=== PATIENT | male | born 1985 | race American Indian/Alaskan Native ===

== ENCOUNTER 2017-02-21 18:33 | Emergency (ER) | payer MEDICAID ==
--- NOTE | 2017-02-21 21:54 | Emergency Department Report ---
HPI - General Chief Complaint: Earache Time Seen by Provider: 02/21/17 21:51 - HPI HPI: Patient here requesting a ring removal off his right ring finger. This was removed in triage area. Patient also reports left r ear pain 1 month. Denies any trauma or drainage from ears. Has any nasal congestion. Denies any fever or chills ,shortness of breath or chest pain. Patient is HIV positive and he said he goes to [facility] and will be seeing them in 2 months. He said they manage his HIV. Pain to left ear is 5 out of 10 and it comes and goes and he said he took Tylenol for pain. No pain medicine taken today. Patient has no other complaints. He has a history also of schizophrenia and asthma. ED Past Medical Hx - Past Medical History Previous Medical History?: Yes Hx Psychiatric Treatment: Yes (schizophrenic) Hx Asthma: Yes Hx HIV: Yes - Surgical History Past Surgical History?: No - Family History Family history: no significant - Social History Smoking Status: Current Every Day Smoker Substance Use Type: None - Medications Home Medications: Home Medications Medication Instructions Recorded Confirmed Last Taken Type Neomy/Polymyx B/Hc Otic Susp 4 drops OTIC TID #1 bottle 02/21/17 Unknown Rx [Cortisporin (Otic) Susp] ED Review of Systems ROS: Stated complaint: UNABLE TO REMOVE RING FROM RT HAND Other details as noted in HPI Comment: All other systems reviewed and negative Constitutional: denies: chills, fever, weakness Eyes: denies: eye pain, eye discharge ENT: ear pain (left ear). denies: throat pain, dental pain, congestion Respiratory: no symptoms reported Cardiovascular: denies: chest pain, palpitations, edema, syncope Gastrointestinal: denies: abdominal pain, nausea, vomiting Musculoskeletal: arthralgia (right ring finger pain ,requesting removal of ring) Skin: denies: rash Neurological: denies: headache, weakness, abnormal gait, vertigo Physical Exam - Physical Exam Vital Signs: Vital Signs 02/21/17 18:48 Temperature 98.6 F Pulse Rate 90 Respiratory 16 Rate Blood Pressure 115/76 O2 Sat by Pulse 99 Oximetry General: This is a 31-year-old male well-nourished well-developed in no acute distress. Physical Exam: Head: Normocephalic atraumatic Mouth: Moist, no pharyngeal exudate or erythema. Uvula is midline and oral airway is patent. No gingival enlargement or dental tenderness. No facial swelling. No peritonsillar abscesses. Neck: Supple, no C-spine tenderness, no tracheal deviation. Nontender to palpate. no adenopathy Ears: Bilateral TMs pearly martínez . Left EAC with redness, swelling. No drainage noted . Left tragus tender to palpate Eyes: Bilateral pupils equal and reactive to light, bilateral EOM intact. Bilateral sclera and conjunctiva without injection. Normal accommodation Nose: Mucosa moist, normal mucosa .maxillary and frontal sinus non-tender to palpate. Lungs: Clear to auscultate bilaterally no rhonchi wheezes or rales. Normal work of breathing extremity; No CCE. +2 pulses. No neurovascular compromise. Right fourth finger where ring was removed without abnormality except noted indentation where ring was. Capillary refill less than 3 seconds. Good color, sensation, movement in temperature to extremities. Full range of motion to all extremities including right ring finger. Cardiovascular: S1-S2, regular rate rhythm. No murmurs. Skin: clean Dry and intact no rash no lesions Psych: Normal mood and behavior ED Course Vital Signs 02/21/17 18:48 Temperature 98.6 F Pulse Rate 90 Respiratory 16 Rate Blood Pressure 115/76 O2 Sat by Pulse 99 Oximetry - Reevaluation(s) Reevaluation #1: 02/21/17 23:09 Patient had ring removed in triage area. - Procedure Description Procedures done: Procedure for removal of ring: Ring cutter used to remove rings from right fourth finger. Patient tolerated procedure well. No deformity noted. ED Medical Decision Making - Medical Decision Making ED course: Patient here complaining of left ear pain and requesting ring removed from right ring finger. See procedure note for details on removal. Patient with otitis externa left ear and arthralgia. Patient is stable to follow-up with his primary care physician in 3-5 days. He voices understanding of discharge diagnosis and treatment plan and discharged home in stable condition. Critical care attestation.: If time is entered above; I have spent that time in minutes in the direct care of this critically ill patient, excluding procedure time. ED Disposition Clinical Impression: Otalgia, left ear, Encounter for smoking cessation counseling Superficial foreign body of right ring finger Qualifiers: Encounter type: initial encounter Qualified Code(s): S60.454A - Superficial foreign body of right ring finger, initial encounter Otitis externa of left ear Qualifiers: Otitis externa type: noninfectious Noninfectious otitis externa type: other type Chronicity: unspecified Qualified Code(s): H60.8X2 - Other otitis externa, left ear Disposition: DISCHARGED TO HOME OR SELFCARE Is pt being admited?: No Does the pt Need Aspirin: No Condition: Stable Instructions: Earache (ED), Otitis Externa (ED), How to Stop Smoking (ED) Additional Instructions: Please follow-up with your primary care physician at [facility] in 3-5 days. Take antibiotic eardrops as instructed. Avoid getting water in your ears. Prescriptions: Neomy/Polymyx B/Hc Otic Susp [Cortisporin (Otic) Susp] 4 drops OTIC TID #1 bottle Referrals: PRIMARY CARE, [Primary Care Provider] - 3-5 Days Forms: Work/School Release Form(ED)
[2017-02-21 23:34] VITALS: BP 120/78
== END 2017-02-21 23:35 | disposition home or self-care (01) ==
LOC: ED 18:33
DX: S60.454A Superficial foreign body of right ring finger, initial encounter (principal); H60.8X2 Other otitis externa, left ear; J45.909 Unspecified asthma, uncomplicated; F20.9 Schizophrenia, unspecified; X58.XXXA Exposure to other specified factors, initial encounter; Y93.9 Activity, unspecified; Y92.9 Unspecified place or not applicable; Y99.9 Unspecified external cause status
CPT/HCPCS: 99282

== ENCOUNTER 2018-10-25 09:17 | Emergency (ER) | payer MEDICAID ==
[2018-10-25 09:28] VITALS: BP 152/72
--- NOTE | 2018-10-25 09:50 | Emergency Department Report ---
Upper Extremity - [facility] Chief Complaint: Extremity Injury, Upper Stated Complaint: LT ARM INJURY Time Seen by Provider: 10/25/18 09:42 Upper Extremity: Left Hand (pain intermittent x 1 day) Occurred When: 1 Day Mechanism: Unsure Severity: mild Symptoms: No Pain with Movement, No Deformity, No Limited Range of Movement, No Numbness, No Weakness, No Swelling, No Bruising/Ecchymosis, No Laceration or Abrasion Other History: 32-year-old male presents to ED complaining of left hand pain since Wednesday. Patient states that the pain itself is not at the moment but he has some pain he denies trauma, injury to the hand. ED Review of Systems ROS: Stated complaint: LT ARM INJURY Other details as noted in HPI ED Past Medical Hx - Past Medical History Previous Medical History?: Yes Hx Psychiatric Treatment: Yes (schizophrenic) Hx Asthma: Yes Hx HIV: Yes Additional medical history: herpes - Surgical History Past Surgical History?: No Additional Surgical History: unable to assess - Social History Smoking Status: Current Every Day Smoker Substance Use Type: Alcohol - Medications Home Medications: Home Medications Medication Instructions Recorded Confirmed Last Taken Type Neomy/Polymyx B/Hc Otic Susp 4 drops OTIC TID #1 bottle 02/21/17 Unknown Rx [Cortisporin (Otic) Susp] Naproxen [Naprosyn] 500 mg PO BID #30 tablet 10/25/18 Unknown Rx Upper Extremity Exam - Exam General: Vital signs noted. No distress. Alert and acting appropriately. Head and Torso: No HEENT Abnormality, No Neck Tenderness, No Chest/Lungs Abnormality, No Abdominal Tenderness, No Back Tenderness Shoulder Exam: Yes Normal Range of Motion in Shoulder, No Shoulder Tenderness, No Clavicle Tenderness, No Shoulder Deformity, No AC Joint Tenderness Arm Exam: No Arm/Humerus Tenderness, No Arm Deformity Elbow: No Elbow Tenderness, No Normal Range of Motion in Elbow, No Elbow Deformity Forearm: No Forearm Tenderness, No Forearm Deformity, No Pain with Pronation, No Pain with Supination Wrist: Yes Normal ROM in Wrist, No Wrist Tenderness, No Wrist Deformity, No Snuffbox Tenderness, No Pain with Axial Thumb Compression Hand: Yes Normal ROM in Digit(s), No Hand Tenderness, No Hand Deformity, No Digit Tenderness, No Digit(s) Deformity, No Tendon Dysfunction CMS Exam: No Broken Skin, No Normal Distal Pulses, No Normal Capillary Refill, No Normal Distal Sensation ED Course Vital Signs 10/25/18 09:22 Temperature 98.7 F Pulse Rate 112 H Respiratory 14 Rate Blood Pressure 152/72 O2 Sat by Pulse 99 Oximetry ED Medical Decision Making - Radiology Data Radiology results: report reviewed, image reviewed XRay Report Signed Fluoro Time In Minutes: LEFT HAND, 2 views: History: Left hand pain. The bony architecture is intact. Bony alignment is normal. No soft tissue abnormalities are seen. The joint spaces appear preserved. IMPRESSION: Normal left hand. Transcribed By: TTR Dictated By: NICKIE ISABEL JR, MD Electronically Authenticated By: NICKIE ISABEL JR, MD Signed Date/Time: 10/25/18 1145 - Medical Decision Making 32-year-old male presents with hand pain. Plan evaluation and no deformity, erythema or swelling. Discussed the patient follow up with her physician X-ray findings shows no acute process. Vital signs are normal patient is in no acute or respiratory distress Critical care attestation.: If time is entered above; I have spent that time in minutes in the direct care of this critically ill patient, excluding procedure time. ED Disposition Clinical Impression: Hand pain, left, Arthralgia Disposition: DC-01 TO HOME OR SELFCARE Is pt being admited?: No Does the pt Need Aspirin: No Condition: Stable Instructions: Wrist Injury (ED), Arthralgia (ED) Additional Instructions: Make sure to follow up with the primary care physician as discussed. Take all your medications as you've been prescribed. If you have any worsening symptoms or develop new symptoms please return to ED immediately. Prescriptions: Naproxen [Naprosyn] 500 mg PO BID #30 tablet Referrals: [facility] [Outside] - 3-5 Days [facility] [Outside] - 3-5 Days Forms: Work/School Release Form(ED) Time of Disposition: 10:09
--- NOTE | 2018-10-25 11:49 | XRay Report ---
LEFT HAND, 2 views: History: Left hand pain. The bony architecture is intact. Bony alignment is normal. No soft tissue abnormalities are seen. The joint spaces appear preserved. IMPRESSION: Normal left hand.
== END 2018-10-25 10:53 | disposition home or self-care (01) ==
LOC: ED 09:17
DX: M79.642 Pain in left hand (principal); J45.909 Unspecified asthma, uncomplicated; F20.9 Schizophrenia, unspecified; F17.200 Nicotine dependence, unspecified, uncomplicated
CPT/HCPCS: 99283

== ENCOUNTER 2018-12-30 10:25 | Emergency (ER) | payer MEDICAID ==
--- NOTE | 2018-12-30 11:12 | Emergency Department Report ---
ED Psych HPI - General Chief Complaint: Medical Clearance Stated Complaint: DRUG ABUSE Time Seen by Provider: 12/30/18 11:02 Source: EMS Mode of arrival: Stretcher - History of Present Illness Initial Comments: 33-year-old male presents to ED via EMS for psychosis. Patient reportedly has history of bipolar and schizophrenia. Patient's mother called EMS this morning because patient was "tearing up the house." Mother states patient has been using methamphetamine. Patient was agitated, combative and not following directions, so EMS administered 5 mg Versed, 5 mg Haldol, 50 mg Benadryl. Patient currently sedated. MD Complaint: altered mental status -: This morning Context: recent drug abuse Treatments Prior to Arrival: chemical restraints - Related Data Previous Rx's Medication Instructions Recorded Last Taken Type Neomy/Polymyx B/Hc Otic Susp 4 drops OTIC TID #1 bottle 02/21/17 Unknown Rx [Cortisporin (Otic) Susp] Naproxen [Naprosyn] 500 mg PO BID #30 tablet 10/25/18 Unknown Rx Allergies Allergy/AdvReac Type Severity Reaction Status Date / Time No Known Allergies Allergy Unverified 04/02/15 18:52 ED Review of Systems ROS: Stated complaint: DRUG ABUSE Other details as noted in HPI Comment: Unobtainable due to pts medical conditions (pt sedated) ED Past Medical Hx - Past Medical History Hx Psychiatric Treatment: Yes (schizophrenic) Hx Asthma: Yes Hx HIV: Yes Additional medical history: herpes - Surgical History Additional Surgical History: unable to assess - Social History Smoking Status: Current Every Day Smoker Substance Use Type: Alcohol - Medications Home Medications: Home Medications Medication Instructions Recorded Confirmed Last Taken Type Neomy/Polymyx B/Hc Otic Susp 4 drops OTIC TID #1 bottle 02/21/17 Unknown Rx [Cortisporin (Otic) Susp] Naproxen [Naprosyn] 500 mg PO BID #30 tablet 10/25/18 Unknown Rx ED Physical Exam - General Limitations: Altered Mental Status General appearance: in no apparent distress - Head Head exam: Present: atraumatic, normocephalic - Eye Eye exam: Present: normal appearance - ENT ENT exam: Present: mucous membranes moist - Neck Neck exam: Present: normal inspection - Respiratory Respiratory exam: Present: normal lung sounds bilaterally. Absent: respiratory distress - Cardiovascular Cardiovascular Exam: Present: normal rhythm, tachycardia - GI/Abdominal GI/Abdominal exam: Present: soft. Absent: distended - Extremities Exam Extremities exam: Present: normal inspection - Neurological Exam Neurological exam: Present: other (pt sedated, withdraws to painful stimuli) - Skin Skin exam: Present: warm, dry, intact, normal color ED Course Vital Signs 12/30/18 12/30/18 12/30/18 10:55 10:59 11:05 Temperature 98.0 F Pulse Rate 109 H 105 H Respiratory 22 18 Rate Blood Pressure 117/63 101/58 [Left] O2 Sat by Pulse 97 Oximetry 12/30/18 12/30/18 12/30/18 12:55 14:15 15:00 Temperature Pulse Rate 99 H 99 H 75 Respiratory 18 18 18 Rate Blood Pressure 96/56 87/49 106/66 [Left] O2 Sat by Pulse 97 99 98 Oximetry - Reevaluation(s) Reevaluation #1: 12/30/18 19:00 Pt now arousable. Answers questions appropriately. ED Medical Decision Making - Lab Data Result diagrams: 12/30/18 11:08 12/30/18 11:08 - Medical Decision Making 33-year-old male with history of bipolar and schizophrenia brought in by EMS due to psychosis. Patient sedated with Benadryl, Haldol, Versed prior to ED arrival. Patient placed on a 1013 due to this behavior. Labs unremarkable. Patient is medically clear for mental health evaluation. Will dispo per psych. Critical care attestation.: If time is entered above; I have spent that time in minutes in the direct care of this critically ill patient, excluding procedure time. ED Disposition Clinical Impression: Psychosis Disposition: DC/TX-70 ANOTHER TYPE HLTHCARE Is pt being admited?: No Condition: Stable
[2018-12-30 11:28] LABS: Basophils % (Auto) 0.4 % (0.0-1.8); Eosinophils % (Auto) 0.3 % (0.0-4.3); Hematocrit 38.3 % (35.5-45.6); Hemoglobin 13.1 gm/dl (11.8-15.2); Lymphocytes # (Auto) 2.1 K/mm3 (1.2-5.4); Mean Corpuscular HGB Conc 34 % (32-34); Mean Corpuscular Volume 90 fl (84-94); Monocytes # (Auto) 0.9 K/mm3 (0.0-0.8); Monocytes % (Auto) 9.9 % (0.0-7.3); Platelet Count 220 K/mm3 (140-440); Red Blood Count 4.25 M/mm3 (3.65-5.03); Red Cell Distribution Width 14.8 % (13.2-15.2)
[2018-12-30 11:49] LABS: Alanine Aminotransferase 16 units/L (7-56); BUN/Creatinine Ratio 18; Blood Urea Nitrogen 18 mg/dL (9-20); Calcium 9.4 mg/dL (8.4-10.2); Hemolysis Index 4
[2018-12-30] MEDS ORDERED: NACL 0.9% 1000 ML 1,000 ML ONE (14:38)
[2018-12-30] MEDS ORDERED: NACL 0.9% 1000 ML 1,000 ML IV ONE ×2 (14:57→19:09)
[2018-12-31 00:06] LABS: Bilirubin,Urine NEG (Negative); Blood,Urine NEG (Negative); Color,Urine Yellow (Yellow); Protein,Urine <15 mg/dL mg/dL (Negative)
[2018-12-31 00:13] LABS: Cocaine Screen,Urine PRESUMPTIVE NEGATIVE; Methadone Screen,Urine PRESUMPTIVE NEGATIVE; Opiate Screen,Urine PRESUMPTIVE NEGATIVE
[2018-12-31 00:26] LABS: Amphetamine Screen,Urine PRESUMPTIVE POSITIVE; Benzodiazepines Screen,Urine PRESUMPTIVE POSITIVE; Cannabinoid Screen,Urine PRESUMPTIVE POSITIVE
[2018-12-31] MEDS ORDERED: BACTRIM DS PO SCH (10:00)
[2018-12-31] MEDS ORDERED: ZOVIRAX PO SCH (10:00)
[2018-12-31] MEDS ORDERED: EPIVIR PO SCH (10:00)
[2018-12-31] MEDS ORDERED: LAMIVUDI PO SCH (10:00)
[2018-12-31] MEDS ORDERED: NON-FORMULARY (Acyclovir [Zovirax Tab] 400 MG) PO SCH (10:00)
[2018-12-31] MEDS ORDERED: DOLUTEGRAVIR PO SCH (10:00)
[2018-12-31] MEDS ORDERED: ZIAGEN PO SCH (10:00)
[2018-12-31] MEDS ORDERED: TIVICAY PO SCH (10:00)
[2018-12-31] MEDS ORDERED: celeXA PO SCH (10:00)
[2018-12-31] MEDS ORDERED: ABACAVIR PO SCH (10:00)
[2018-12-31 18:51] VITALS: BP 126/70
== END 2018-12-31 18:00 | disposition other institution (70) ==
LOC: EEVIPCON 10:25 → ED 10:25
DX: F29 Unspecified psychosis not due to a substance or known physiological condition (principal); J45.909 Unspecified asthma, uncomplicated; F17.200 Nicotine dependence, unspecified, uncomplicated; F20.9 Schizophrenia, unspecified
CPT/HCPCS: 36415; 80053; 80307; 81001; 85025; 93005; 93010; 99285; G0480; J7030; 80320

== ENCOUNTER 2019-03-07 14:27 | Emergency (ER) | payer MEDICAID ==
[2019-03-07 15:41] LABS: Calcium 10.1 mg/dL (8.4-10.2)
--- NOTE | 2019-03-07 15:46 | Emergency Department Report ---
HPI - General Chief Complaint: Psych Time Seen by Provider: 03/07/19 14:43 - HPI HPI: 33-year-old -Turkmen male presents to the emergency department via police after he was found on the side of the street singing about drug use. The patient is very disorganized and acting erratically. I went to see the patient in room 15 and started asking him questions as part of the history and physical and the patient started doing pushups and then removed his pants, which he continues to do since being in the emergency department. He is currently a poor historian. He has a history of methamphetamine use and the patient presented about 1 month ago with similar erratic behavior that was secondary to this illicit drug use. However there are some records that say that he has a history of schizophrenia, asthma, HIV. The patient is currently a poor historian secondary to his current condition. ED Past Medical Hx - Past Medical History Previous Medical History?: Yes Hx Psychiatric Treatment: Yes (schizophrenic) Hx Asthma: Yes Hx HIV: Yes Additional medical history: herpes - Surgical History Past Surgical History?: Yes Additional Surgical History: unable to assess - Social History Smoking Status: Unknown if ever smoked - Medications Home Medications: Home Medications Medication Instructions Recorded Confirmed Last Taken Type Acyclovir [Zovirax Tab] 400 mg PO BID 12/31/18 03/07/19 Unknown History Citalopram [celeXA] 10 mg PO QDAY 12/31/18 03/07/19 Unknown History Triumeq 600-50-300 mg Tablet 1 tab PO QHS 01/31/19 03/07/19 Unknown History risperiDONE [RisperDAL] 1 mg PO BID 01/31/19 03/07/19 Unknown History ED Review of Systems ROS: Stated complaint: MEDICAL CLEARANCE Other details as noted in HPI Comment: Unobtainable due to pts medical conditions Physical Exam - Physical Exam Vital Signs: Vital Signs 03/07/19 03/07/19 14:49 15:14 Temperature 98.4 F Pulse Rate 130 H Respiratory 16 18 Rate Blood Pressure 150/101 [Left] O2 Sat by Pulse 94 Oximetry Physical Exam: GENERAL: Patient is agitated and altered. HENT: Normocephalic. Atraumatic. Patient has moist mucous membranes. EYES: Extraocular motions are intact. NECK: Supple. Trachea is midline. CHEST/LUNGS: Clear to auscultation. There is no respiratory distress noted. HEART/CARDIOVASCULAR: Regular. There is mild to moderate tachycardia. There is no murmur. ABDOMEN: Abdomen is soft. There is no tenderness to palpation. There is no abdominal distention. SKIN: Skin is warm and dry. NEURO: The patient is awake but altered. Uncooperative and not redirectable. MUSCULOSKELETAL: There is no tenderness or deformity. There is no evidence of acute injury. Moves all of his extremities. Good muscle strength witnessed. ED Course Vital Signs 03/07/19 03/07/19 14:49 15:14 Temperature 98.4 F Pulse Rate 130 H Respiratory 16 18 Rate Blood Pressure 150/101 [Left] O2 Sat by Pulse 94 Oximetry ED Medical Decision Making - Lab Data Result diagrams: 03/07/19 15:08 03/08/19 04:42 - Medical Decision Making This patient presented via PD after he was singing on the street about drugs. Once in the ED, he is altered and not redirectable. He is consistently taking off his pants and walking around the room half naked. He is seen doing pushups and burpies. He will not sit still. He has a past history of methamphetamine abuse and I suspected this may be the case again but he definitely fits criteria to be a 1013 as he is having psychosis and unable to care for himself or show appropriate decision making capacity at this point. The patient was given some Haldol for his psychosis and he was then resting comfortably. His HR slowed down and the rest of his vitals have been stable. His labs came back showing UDS positive for Meth and marijuana. His first BMP showed renal insufficiency with creatinine of 2.1 but also signs of dehydration and pre-renal azotemia. He was given 2 L of IVF and the BMP was repeated which showed improvement of the kidney function but then some hyperkalemia. He was given a third liter of IVF and a small dose of kayexalate. He had another BMP in the AM that shows resolution of his lab abnormalities. No renal insufficiency and no hyperkalemia. He will be evaluated by the crisis team and the psychiatric team for further disposition but at this time he is a 1013 and would need transfer to inpatient psych. He is now medically cleared for psychiatric placement. - Differential Diagnosis substance abuse/intoxication, schizophrenia, Bipolar Critical Care Time: No Critical care attestation.: If time is entered above; I have spent that time in minutes in the direct care of this critically ill patient, excluding procedure time. ED Disposition Clinical Impression: Methamphetamine abuse Psychosis Qualifiers: Psychosis type: unspecified psychosis type Qualified Code(s): F29 - Unspecified psychosis not due to a substance or known physiological condition Disposition: DC/TX-65 PSY HOSP/PSY UNIT Is pt being admited?: No Condition: Stable Time of Disposition: 18:17
[2019-03-07 15:58] LABS: Basophils % (Auto) 0.2 % (0.0-1.8); Eosinophils % (Auto) 0.1 % (0.0-4.3); Hematocrit 40.6 % (35.5-45.6); Hemoglobin 13.9 gm/dl (11.8-15.2); Lymphocytes # (Auto) 0.8 K/mm3 (1.2-5.4); Lymphocytes % (Auto) 4.5 % (13.4-35.0); Mean Corpuscular HGB Conc 34 % (32-34); Mean Corpuscular Volume 90 fl (84-94); Monocytes # (Auto) 1.4 K/mm3 (0.0-0.8); Monocytes % (Auto) 7.7 % (0.0-7.3); Platelet Count 239 K/mm3 (140-440); Red Blood Count 4.52 M/mm3 (3.65-5.03); Red Cell Distribution Width 14.4 % (13.2-15.2)
[2019-03-07] MEDS ORDERED: NACL 0.9% 1000 ML 1,000 ML IV ONE ×3 (17:02→19:19)
[2019-03-07] MEDS ORDERED: HALDOL IM ONE (17:20)
[2019-03-07] MEDS ORDERED: KIONEX PO ONE (19:47)
[2019-03-08 02:07] LABS: Bilirubin,Urine NEG (Negative); Blood,Urine NEG (Negative); Color,Urine Yellow (Yellow); Protein,Urine <15 mg/dL mg/dL (Negative); Urobilinogen,Urine < 2.0 mg/dL (<2.0); WBC,Urine < 1.0 /HPF (0.0-6.0)
[2019-03-08 02:15] LABS: Benzodiazepines Screen,Urine PRESUMPTIVE NEGATIVE; Cocaine Screen,Urine PRESUMPTIVE NEGATIVE; Methadone Screen,Urine PRESUMPTIVE NEGATIVE; Opiate Screen,Urine PRESUMPTIVE NEGATIVE
[2019-03-08 02:57] LABS: Amphetamine Screen,Urine PRESUMPTIVE POSITIVE; Cannabinoid Screen,Urine PRESUMPTIVE POSITIVE
[2019-03-08 05:14] LABS: BUN/Creatinine Ratio 26; Blood Urea Nitrogen 26 mg/dL (9-20); Calcium 8.3 mg/dL (8.4-10.2); Hemolysis Index 3
--- NOTE | 2019-03-08 13:54 | Consultation ---
History of Present Illness - Reason for Consult Consult date: 03/08/19 Reason for consult: Initial Psychiatric Evaluation - Chief Complaint Chief complaint: "I don't know why I'm here. " - History of Present Psychiatric Illness Patient is a 33 year old male who presents to the emergency room via police after he was found on the side of the street singing about drug use. The patient is very disorganized and somewhat incoherent. Patient has a PPHx of schizophrenia. Patient is known to provider. Today the patient is uncooperative and guarded during the assessment. Patient only wants to sleep during the assessment. Mood is labile. Patient reports " I'm here to get rest." Mood is labile. Patient was last compliant with medication days ago. Although he denies psychosis, symptoms are evident. Patient denies SI/HI's, A/VH's, and delusions. Current Psychiatric Medications: Risperdal 1mg po BID, Celexa 10mg po QAM- patient has been noncompliant. Past Psychiatric History: Schizophrenia (2012); 4 previous inpatient psychiatric hospitalizations ( [place] and [place]); no outpatient psychiatrist; no previous suicide attempts. Past Psychiatric Medication Trials: unable to assess. Refuses to answer questions. History of Trauma/Abuse: Patient denies hx of trauma. Also patient denies sexual, physical, and mental abuse. History of Drug/Alcohol Abuse: Patient denies. UDS positive for amphetamines and marijuana. Social History: 9th grade-highest level of education; SSI- monthly income; lives with mother; no children; single; no pending legal issues; " good " support system. Family History of Psychiatric Illness/Substance Abuse: Patient denies. Medications and Allergies Allergies Allergy/AdvReac Type Severity Reaction Status Date / Time No Known Allergies Allergy Unverified 04/02/15 18:52 Home Medications Medication Instructions Recorded Confirmed Last Taken Type Acyclovir [Zovirax Tab] 400 mg PO BID 12/31/18 03/07/19 Unknown History Citalopram [celeXA] 10 mg PO QDAY 12/31/18 03/07/19 Unknown History Triumeq 600-50-300 mg Tablet 1 tab PO QHS 01/31/19 03/07/19 Unknown History risperiDONE [RisperDAL] 1 mg PO BID 01/31/19 03/07/19 Unknown History Mental Status Exam - Vital signs Last Vital Signs Temp 98.4 F 03/08/19 08:57 Pulse 97 H 03/08/19 08:57 Resp 18 03/08/19 08:57 BP 121/64 03/08/19 08:57 Pulse Ox 97 03/08/19 08:57 - Exam Narrative exam: Mental Status Exam Appearance: irritable, uncooperative; green hospital scrubs Behavior: poor eye contact, guarded Speech: somewhat incoherent; soft tone Mood: irritable, anxious, and labile Affect: labile mood Thought Process: impoverished Thought Content: denies SI/HI's, AVH's, and delusions; + AH's Motor Activity: ambulatory Cognition: A/O x 3 Insight: poor Judgment: poor Results Result Diagrams: 03/07/19 15:08 03/08/19 04:42 Abnormal lab results 03/07/19 03/07/19 03/07/19 Range/Units 15:08 15:08 15:08 WBC 17.7 H (4.5-11.0) K/mm3 Lymph % (Auto) 4.5 L (13.4-35.0) % [place] % (Auto) 7.7 H (0.0-7.3) % Lymph # 0.8 L (1.2-5.4) K/mm3 [place] # 1.4 H (0.0-0.8) K/mm3 Seg Neutrophils % 87.5 H (40.0-70.0) % Seg Neutrophils # 15.5 H (1.8-7.7) K/mm3 Sodium (137-145) mmol/L Potassium (3.6-5.0) mmol/L Carbon Dioxide 18 L (22-30) mmol/L BUN 47 H (9-20) mg/dL Creatinine 2.1 H (0.8-1.5) mg/dL Glucose (75-100) mg/dL Calcium (8.4-10.2) mg/dL Total Creatine Kinase 914 H (55-170) units/L 03/07/19 03/08/19 Range/Units 18:56 04:42 WBC (4.5-11.0) K/mm3 Lymph % (Auto) (13.4-35.0) % [place] % (Auto) (0.0-7.3) % Lymph # (1.2-5.4) K/mm3 [place] # (0.0-0.8) K/mm3 Seg Neutrophils % (40.0-70.0) % Seg Neutrophils # (1.8-7.7) K/mm3 Sodium 135 L (137-145) mmol/L Potassium 5.7 H D (3.6-5.0) mmol/L Carbon Dioxide 21 L (22-30) mmol/L BUN 44 H 26 H (9-20) mg/dL Creatinine 1.9 H (0.8-1.5) mg/dL Glucose 135 H (75-100) mg/dL Calcium 8.0 L D 8.3 L (8.4-10.2) mg/dL Total Creatine Kinase (55-170) units/L All other labs normal. Assessment and Plan Assessment and plan: Impression: PPHx schizophrenia. Today the patient is irritable and uncooperative during the assessment. Patient is guarded with impoverished thought content. UDS is positive for amphetamines and marijuana. Appears to have perceptual disturbances. Recommendation/Plan: 1. Continue 1013. Will reassess in 24 hours. 2. Restart home medications: Risperdal 0.5mg po BID psychosis/mood and Celexa 10mg po QAM depression/anxiety. Discussed the metabolic side effects of Risperdal and possible increase suicidality/medication induced jazzy of Celexa. 3. Attempt to gain collateral to determine proper disposition. Disposition: Patient referred to inpatient psychiatric hospitalizations. Will staff with Dr. Taylor Gonzalez.
[2019-03-08] MEDS ORDERED: celeXA PO SCH (15:18)
[2019-03-08 19:49] VITALS: BP 126/76
[2019-03-08] MEDS ORDERED: RisperDAL PO SCH (22:00)
== END 2019-03-08 19:22 ==
LOC: EEVIPCON 14:27 → ED 14:27
DX: F29 Unspecified psychosis not due to a substance or known physiological condition (principal); J45.909 Unspecified asthma, uncomplicated; Z21 Asymptomatic human immunodeficiency virus [HIV] infection status; F15.10 Other stimulant abuse, uncomplicated; F12.10 Cannabis abuse, uncomplicated; E86.0 Dehydration
CPT/HCPCS: 36415; 80048; 80307; 81001; 82550; 85025; 96360; 96361; 96372; 99285; G0480; J1630; J7030; 80320

== ENCOUNTER 2019-06-14 16:55 | Emergency (ER) | payer MEDICAID | END 2019-06-14 17:00 | disposition left against medical advice (07) | LOC: ED 16:55 | DX: Z00.00 Encounter for general adult medical examination without abnormal findings (principal); Z53.21 Procedure and treatment not carried out due to patient leaving prior to being seen by health care provider ==

== ENCOUNTER 2021-07-18 11:55 | Emergency (ER) | payer MEDICAID ==
--- NOTE | 2021-07-18 12:30 | Emergency Department Report ---
HPI - General Chief Complaint: Recheck/Abnormal Lab/Rx Time Seen by Provider: 07/18/21 12:15 - HPI HPI: This is a 35-year-old male who presents to the emergency department with the request for medication refills. Patient has a history of schizophrenia and HIV. He says that he has been out of his medications over the past few days after he just got out [facility]. The patient takes Triumeq and Prezcobix for his HIV, and Risperdal and Celexa for schizophrenia and anxiety. The patient denies any hallucinations, suicidal or homicidal ideations. The patient was found to have a slightly elevated heart rate through triage and he says that he feels anxious a bout coming to the emergency department and about "getting stuff done." The patient says that he needs a letter to bring to [employer] stating that he has mental health conditions that require these medications. He denies any chest pain, shortness of breath, palpitations, headache, dizziness/lightheadedness. ED Past Medical Hx - Past Medical History Previous Medical History?: Yes Hx Psychiatric Treatment: Yes (schizophrenic) Hx Asthma: Yes Hx HIV: Yes Additional medical history: herpes - Surgical History Past Surgical History?: Yes Additional Surgical History: unable to assess - Social History Smoking Status: Unknown if ever smoked - Medications Home Medications: Home Medications Medication Instructions Recorded Confirmed Last Taken Type Triumeq 600-50-300 mg Tablet 1 tab PO QHS 01/31/19 03/07/19 Unknown History Acyclovir [Zovirax Tab] 400 mg PO BID #40 tab 07/18/21 Unknown Rx Citalopram [celeXA] 10 mg PO QDAY #20 07/18/21 Unknown Rx Darunavir/Cobicistat (Nf) 1 each PO QDAY #30 tablet 07/18/21 Unknown Rx [Prezcobix 800 mg-150 mg (Nf)] risperiDONE [RisperDAL] 1 mg PO BID #40 07/18/21 Unknown Rx ED Review of Systems ROS: Stated complaint: MEDICATION Other details as noted in HPI Comment: All other systems reviewed and negative Constitutional: denies: chills, fever Eyes: denies: eye pain, vision change ENT: denies: ear pain, throat pain Respiratory: denies: cough, shortness of breath Cardiovascular: denies: chest pain, palpitations Gastrointestinal: denies: abdominal pain, vomiting Genitourinary: denies: dysuria, discharge Musculoskeletal: denies: back pain, arthralgia Neurological: denies: headache, weakness Psychiatric: anxiety. denies: auditory hallucinations, visual hallucinations, homicidal thoughts, suicidal thoughts Physical Exam - Physical Exam Vital Signs: Vital Signs 07/18/21 12:10 Temperature 98.2 F Pulse Rate 122 H Respiratory 18 Rate Blood Pressure 131/81 O2 Sat by Pulse 95 Oximetry Physical Exam: GENERAL: The patient is well-developed well-nourished. HENT: Normocephalic. Atraumatic. Patient has moist mucous membranes. EYES: Extraocular motions are intact. NECK: Supple. Trachea is midline. CHEST/LUNGS: Clear to auscultation. There is no respiratory distress noted. HEART/CARDIOVASCULAR: Regular. There is mild tachycardia. There is no murmur. SKIN: Skin is warm and dry. NEURO: The patient is awake, alert, and oriented. The patient is cooperative. The patient has no focal neurologic deficits. Normal speech. MUSCULOSKELETAL: There is no tenderness or deformity. There is no limitation range of motion. ED Course Vital Signs 07/18/21 12:10 Temperature 98.2 F Pulse Rate 122 H Respiratory 18 Rate Blood Pressure 131/81 O2 Sat by Pulse 95 Oximetry ED Medical Decision Making - Medical Decision Making This patient presents to the emergency department for medication refills for his HIV and psychiatric medications. He has only been out of the medication for a few days. He does not appear to have any active psychosis and denies any suicidal or homicidal ideations. Patient has some mild tachycardia but admits that he is anxious about being in the emergency department and also getting to the [employer] Security office to "take care of things." He denies any chest pain, shortness of breath, palpitations or any other physical complaints. He has been given a 2 to 3-week prescription of his medications and outpatient follow-up for primary care and psychiatry. Critical Care Time: No Critical care attestation.: If time is entered above; I have spent that time in minutes in the direct care of this critically ill patient, excluding procedure time. ED Disposition Clinical Impression: History of schizophrenia, History of HIV infection, Medication refill Disposition: HOME / SELF CARE / HOMELESS Is pt being admited?: No Condition: Stable Additional Instructions: Please follow-up with a primary care physician in the next few days. I have given you a referral for a local primary care physician, Dr. Silva, and a primary care clinic, [facility]. I am giving you a referral for the [facility] facility to follow-up regarding your history of schizophrenia and for further medication refills. Return to the emergency department with any worsening of your symptoms, new or concerning symptoms not addressed during this current emergency department visit, or with any acute distress. Prescriptions: Citalopram [celeXA] 10 mg PO QDAY #20 Darunavir/Cobicistat (Nf) [Prezcobix 800 mg-150 mg (Nf)] 1 each PO QDAY #30 tablet risperiDONE [RisperDAL] 1 mg PO BID #40 Acyclovir [Zovirax Tab] 400 mg PO BID #40 tab Referrals: SHAR SILVA MD [Staff Physician] - 3-5 Days [facility] [Provider Group] - 3-5 Days [facility] [Outside] - 3-5 Days Time of Disposition: 12:30
[2021-07-18 13:30] VITALS: BP 130/70
== END 2021-07-18 14:21 | disposition home or self-care (01) ==
LOC: ED 11:55
DX: F20.9 Schizophrenia, unspecified (principal); Z76.0 Encounter for issue of repeat prescription
CPT/HCPCS: 99281